=== PATIENT | male | born 1965 | race Caucasian/White ===

== ENCOUNTER 2016-04-10 10:57 | Emergency (ER) | payer SELFPAY ==
[~2016-04-10] VITALS: Ht 172.7 cm; Wt 136.4 kg
[~2016-04-10 10:57] MED LIST: INSLAN SQ
[2016-04-10 11:42] LABS: GLUCOSE,POINT OF CARE 112 MG/DL (70-110)
[2016-04-10 11:49] VITALS: BP 148/78
[2016-04-10] MEDS ORDERED: IBUPROFEN 600 MG TABLET PO ONE (12:15)
== END 2016-04-10 12:21 | disposition home or self-care (01) ==
LOC: EMS 10:59
DX: S76.012A Strain of muscle, fascia and tendon of left hip, initial encounter (principal); E11.9 Type 2 diabetes mellitus without complications; F17.210 Nicotine dependence, cigarettes, uncomplicated; Z79.4 Long term (current) use of insulin; V43.52XA Car driver injured in collision with other type car in traffic accident, initial encounter; Y93.89 Activity, other specified; Y92.89 Other specified places as the place of occurrence of the external cause; Y99.8 Other external cause status
CPT/HCPCS: 82962; 99282

== ENCOUNTER 2016-08-28 18:17 | Emergency (ER) | payer OTHER ==
[~2016-08-28] VITALS: Ht 172.7 cm; Wt 139.0 kg
[2016-08-28] MEDS ORDERED: GABA-531 PO (18:30)
[2016-08-28] MEDS ORDERED: METF500T4 PO (18:30)
[2016-08-28] MEDS ORDERED: LISI-660 PO (18:30)
[2016-08-28 18:32] LABS: GLUCOSE,POINT OF CARE 183 MG/DL (70-110)
[2016-08-28 20:00] VITALS: BP 125/83
[2016-08-28] MEDS ORDERED: KETOROLAC TROMETHAMINE 30 MG/ML VIAL IM ONE (20:00)
[2016-08-28] MEDS ORDERED: DIAZEPAM 5 MG TABLET PO ONE (20:00)
[2016-08-28] MEDS ORDERED: IBUPROFEN 800 MG TABLET PO ONE (20:00)
== END 2016-08-28 20:28 | disposition home or self-care (01) ==
LOC: EMS 18:19 → MERGE 18:19 → EMS 20:28
DX: S13.4XXA Sprain of ligaments of cervical spine, initial encounter (principal); M62.838 Other muscle spasm; E11.9 Type 2 diabetes mellitus without complications; I10 Essential (primary) hypertension; X58.XXXA Exposure to other specified factors, initial encounter; Y93.01 Activity, walking, marching and hiking; Y92.89 Other specified places as the place of occurrence of the external cause; Y99.8 Other external cause status
CPT/HCPCS: 82962; 96372; 99283; J1885

== ENCOUNTER 2017-11-17 17:51 | Emergency (ER) | payer MEDICAID ==
[~2017-11-17] VITALS: Ht 172.7 cm; Wt 140.9 kg
[~2017-11-17 17:51] MED LIST changes: +GABA-531 PO; +LISI-660 PO; +METF-960 PO
[2017-11-17 18:03] LABS: GLUCOSE,POINT OF CARE 221 MG/DL (70-110)
[2017-11-17 19:16] LABS: BASOPHILS % (AUTO) 0.5 % (0.0-2.0); EOSINOPHILS % (AUTO) 0.8 % (1.0-6.0); HEMATOCRIT 45.2 % (41-53); HEMOGLOBIN 15.5 g/dL (13.5-17.5); LYMPHOCYTES # (AUTO) 2.2 K/uL (1.0-4.8); LYMPHOCYTES % (AUTO) 31.7 % (22.0-44.0); MEAN CORPUSCULAR HEMOGLOBIN 32.1 pg (26.0-34.0); MEAN CORPUSCULAR HGB CONC 34.2 G/dL (31.0-37.0); MEAN CORPUSCULAR VOLUME 94 fL (80-100); MONOCYTES # (AUTO) 0.8 K/uL (0.1-1.0); MONOCYTES % (AUTO) 11.5 % (2.0-9.0); NEUTROPHILS # (AUTO) 3.9 K/uL (1.8-7.7); NEUTROPHILS % (AUTO) 55.5 % (40.0-70.0); PLATELET COUNT (AUTO) 231 K/uL (150-450); RED BLOOD CELL COUNT(AUTO) 4.82 MIL/uL (4.50-5.90); RED CELL DISTRIBUTION WIDTH 13.3 % (11.5-14.5)
[2017-11-17 19:18] LABS: ANION GAP 12 mmol/L (8-16); CALCIUM, TOTAL 8.8 mg/dL (8.8-10.5); CARBON DIOXIDE 23 mmol/L (22-29); CHLORIDE 106 mmol/L (98-107); GLOMERULAR FILTR. RATE CALC > 60 mL/min (>60); GLUCOSE,RANDOM 199 mg/dL (70-110); POTASSIUM 3.5 mmol/L (3.5-5.1); SODIUM SERUM 141 mmol/L (136-145); UREA NITROGEN, BLOOD 10 mg/dL (7-18)
[2017-11-17 19:22] LABS: PROTHROMBIN TIME 10.5 SEC (9.4-11.6)
[2017-11-17 19:44] LABS: ALANINE AMINOTRANSFERASE 96 U/L (12-78); ALBUMIN 3.1 g/dL (3.4-5.0); ALKALINE PHOSPHATASE 83 U/L (46-116); ASPARTATE AMINOTRANSFERASE 90 U/L (15-37); BILIRUBIN,TOTAL 0.3 mg/dL (0.1-1.0); CREATINE KINASE MB 0.6 ng/mL (0-5); CREATINE KINASE, TOTAL ONLY 129 U/L (39-308); TOTAL PROTEIN, SERUM 7.4 g/dL (6.4-8.2)
[2017-11-17 19:49] LABS: APPEARANCE,URINE CLEAR (CLEAR); BILIRUBIN,URINE NEGATIVE (NEGATIVE); GLUCOSE, URINE (UA) NEGATIVE (NEGATIVE); KETONES,URINE NEGATIVE (NEGATIVE); LEUKOCYTE ESTERASE ,URINE NEGATIVE (NEGATIVE); NITRATE,URINE NEGATIVE (NEGATIVE); OCCULT BLOOD,URINE NEGATIVE (NEGATIVE); PROTEIN,URINE NEGATIVE (NEGATIVE); UROBILINOGEN,URINE 0.2 mg/dL (<=1.0)
[2017-11-17 19:55] LABS: AMPHET/METH SCREEN,URINE NEGATIVE (NEGATIVE); BARBITURATE SCREEN, URINE NEGATIVE (NEGATIVE); BENZODIAZEPINES SCREEN,URINE NEGATIVE (NEGATIVE); CANNABINOID SCREEN,URINE NEGATIVE (NEGATIVE); COCAINE SCREEN,URINE NEGATIVE (NEGATIVE); METHADONE SCREEN, URINE NEGATIVE (NEGATIVE); OPIATE SCREEN,URINE NEGATIVE (NEGATIVE); PHENCYCLIDINE SCREEN,URINE NEGATIVE (NEGATIVE)
[2017-11-17] MEDS ORDERED: KETOROLAC TROMETHAMINE 30 MG/ML VIAL IVP ONE (20:00)
[2017-11-17 20:15] LABS: B-TYPE NATRIURETIC PEPTIDE 8 pg/mL (0-100)
[2017-11-17 21:06] VITALS: BP 136/82
== END 2017-11-17 21:09 | disposition home or self-care (01) ==
LOC: EMS 17:52
DX: S80.01XA Contusion of right knee, initial encounter (principal); E11.9 Type 2 diabetes mellitus without complications; R42 Dizziness and giddiness; G89.29 Other chronic pain; E66.01 Morbid (severe) obesity due to excess calories; I10 Essential (primary) hypertension; F17.210 Nicotine dependence, cigarettes, uncomplicated; Z68.42 Body mass index [BMI] 45.0-49.9, adult; Z79.4 Long term (current) use of insulin; Z79.899 Other long term (current) drug therapy; Z79.84 Long term (current) use of oral hypoglycemic drugs; W18.30XA Fall on same level, unspecified, initial encounter; Y93.89 Activity, other specified; Y92.89 Other specified places as the place of occurrence of the external cause; Y99.8 Other external cause status
CPT/HCPCS: 36415; 73562; 80053; 80307; 81003; 82550; 82553; 82962; 83880; 84484; 85025; 85610; 85730; 93005; 96374; 99285; 99406; J1885; 29530

== ENCOUNTER 2018-05-17 16:32 | Emergency (ER) | payer SELFPAY | END 2018-05-17 18:26 | disposition left against medical advice (07) | LOC: EMS 16:33 | DX: Z00.00 Encounter for general adult medical examination without abnormal findings (principal); Z53.21 Procedure and treatment not carried out due to patient leaving prior to being seen by health care provider ==

== ENCOUNTER 2022-07-31 14:05 | Emergency (ER) | payer OTHER ==
[~2022-07-31] VITALS: Ht 175.3 cm; Wt 125.9 kg
[~2022-07-31 14:05] MED LIST changes: +GABA-1181 PO; -GABA-531 PO; -LISI-660 PO; +LISI-892 PO; +METF-1211 PO; -METF-960 PO
[2022-07-31] MEDS ORDERED: KETOROLAC TROMETHAMINE 60 MG/2 ML VIAL IM ONE (15:00)
[2022-07-31] MEDS ORDERED: TRAM-559 PO (16:33)
[2022-07-31 16:35] VITALS: BP 133/84
== END 2022-07-31 16:49 | disposition home or self-care (01) ==
LOC: EMS 14:05
DX: S20.20XA Contusion of thorax, unspecified, initial encounter (principal); S40.011A Contusion of right shoulder, initial encounter; E11.9 Type 2 diabetes mellitus without complications; I10 Essential (primary) hypertension; G89.29 Other chronic pain; Z98.890 Other specified postprocedural states; W01.0XXA Fall on same level from slipping, tripping and stumbling without subsequent striking against object, initial encounter; Y93.89 Activity, other specified; Y92.89 Other specified places as the place of occurrence of the external cause; Y99.8 Other external cause status
CPT/HCPCS: 99284; 82962; 71101; 73030; 96372; J1885

== ENCOUNTER 2022-08-14 18:23 | Emergency (ER) | payer OTHER ==
[~2022-08-14 18:23] MED LIST changes: -GABA-1181 PO; -LISI-892 PO; +TRAM-559 PO
[2022-08-15] MEDS ORDERED: IBUP-1554 PO (02:33)
== END 2022-08-14 19:08 | disposition left against medical advice (07) ==
LOC: EMS 18:23
DX: Z53.21 Procedure and treatment not carried out due to patient leaving prior to being seen by health care provider (principal)

== ENCOUNTER 2022-08-15 01:57 | Emergency (ER) | payer OTHER ==
[~2022-08-15] VITALS: Ht 172.7 cm; Wt 123.6 kg
[2022-08-15 02:22] VITALS: BP 143/78
[2022-08-15] MEDS ORDERED: IBUPROFEN 600 MG TABLET PO ONE (02:30)
[2022-08-15] MEDS ORDERED: IBUP-1554 PO (02:33)
== END 2022-08-15 03:12 | disposition home or self-care (01) ==
LOC: EMS 01:59
DX: S20.211A Contusion of right front wall of thorax, initial encounter (principal); E11.9 Type 2 diabetes mellitus without complications; I10 Essential (primary) hypertension; G89.29 Other chronic pain; Z98.890 Other specified postprocedural states; W18.2XXA Fall in (into) shower or empty bathtub, initial encounter; Y93.89 Activity, other specified; Y92.89 Other specified places as the place of occurrence of the external cause; Y99.8 Other external cause status
CPT/HCPCS: 71101; 99283

== ENCOUNTER 2022-08-18 12:31 | Emergency (ER) | payer OTHER ==
[~2022-08-18] VITALS: Ht 172.7 cm; Wt 78.1 kg
[~2022-08-18 12:31] MED LIST changes: +IBUP-1554 PO
[2022-08-18 14:17] VITALS: BP 148/83
== END 2022-08-18 14:30 | disposition home or self-care (01) ==
LOC: EMS 12:32
DX: S20.211A Contusion of right front wall of thorax, initial encounter (principal); E11.9 Type 2 diabetes mellitus without complications; I10 Essential (primary) hypertension; G89.29 Other chronic pain; M79.606 Pain in leg, unspecified; Z98.890 Other specified postprocedural states; W18.39XA Other fall on same level, initial encounter; Y93.89 Activity, other specified; Y92.89 Other specified places as the place of occurrence of the external cause; Y99.8 Other external cause status
CPT/HCPCS: 99281; Z7502

== ENCOUNTER 2022-08-31 12:21 | Emergency (ER) | payer OTHER ==
[~2022-08-31] VITALS: Ht 172.7 cm; Wt 122.7 kg
[2022-08-31 12:46] VITALS: PULSE 109; TEMP 98
[2022-08-31] MEDS ORDERED: LISI-892 PO (12:48)
[2022-08-31] MEDS ORDERED: BACLOFEN 10 MG TABLET PO ONE (14:15)
[2022-08-31] MEDS ORDERED: LIDOCAINE 5% TRANSDERMAL PATCH TD ONE (14:15)
[2022-08-31] MEDS ORDERED: LIDO700A15 TP (14:17)
[2022-08-31] MEDS ORDERED: BACL10TA PO (14:18)
[2022-08-31 14:35] VITALS: BP 136/81; RESP 18
== END 2022-08-31 14:55 | disposition home or self-care (01) ==
LOC: EMS 12:21
DX: M54.50 Low back pain, unspecified (principal); R07.81 Pleurodynia; E11.9 Type 2 diabetes mellitus without complications; I10 Essential (primary) hypertension; G89.29 Other chronic pain; M79.606 Pain in leg, unspecified; Z98.890 Other specified postprocedural states
CPT/HCPCS: 82962; 99283